=== PATIENT | female | born 1995 | race Caucasian/White ===

== ENCOUNTER 2017-04-04 14:51 | Emergency (ER) | payer OTHER ==
[~2017-04-04] VITALS: Ht 149.9 cm; Wt 59.0 kg
[~2017-04-04 14:51] MED LIST: LISD50CA3 PO
[2017-04-04] MEDS ORDERED: IV NORMAL SALINE 1,000ML 1,000 ML IV ONE (15:30)
[2017-04-04] MEDS ORDERED: ONDANSETRON PF 4 MG/2 ML VIAL. IV ONE (15:45)
[2017-04-04 16:00] LABS: BASO % 0 % (0-3); EOS # 0.2 x10^3/uL (0.0-0.7); EOS % 3 % (0-3); HEMATOCRIT 40.3 % (36.0-47.0); HEMOGLOBIN 13.8 g/dL (12.0-15.5); LYMPH % 29 % (24-48); MEAN CORPUSCULAR HEMOGLOBIN 29 pg (25-35); MEAN CORPUSCULAR HGB CONC 34 g/dL (31-37); MEAN CORPUSCULAR VOLUME 84 fL (79-100); MONO # 0.4 x10^3/uL (0.0-1.1); MONO % 5 % (0-9); NEUT # 4.2 x10^3uL (1.8-7.7); NEUT % 62 % (31-73); PLATELET COUNT 326 x10^3/uL (140-400); RED BLOOD COUNT 4.81 x10^6/uL (3.50-5.40); RED CELL DISTRIBUTION WIDTH 13.5 % (11.5-14.5); WHITE BLOOD COUNT 6.7 x10^3/uL (4.0-11.0)
[2017-04-04 16:07] LABS: BILIRUBIN,URINE NEG (NEG); CLARITY,URINE CLEAR; COLOR,URINE YELLOW; GLUCOSE,URINE NEG (NEG); NITRITE,URINE NEG (NEG); UROBILINOGEN,URINE 0.2 mg/dL (0.2 mg/dL)
[2017-04-04 16:08] LABS: BACTERIA,URINE FEW /HPF (0-FEW); SQUAMOUS EPITHELIAL CELL,UR MANY /LPF
--- NOTE | 2017-04-04 16:25 | ED.ADGEN ---
Past History Past Medical History: Asthma Past Surgical History: No Surgical History Alcohol Use: Occasionally Drug Use: None Adult General Chief Complaint Chief Complaint Right lower quadrant pain HPI HPI Patient is a 22-year-old female with history of dysfunctional uterine bleeding, ovarian cyst who presents with right pelvic pain, after intercourse with light vaginal bleeding described as similar to menstrual. Patient reports mild right lower quadrant pain which is persisted greater than 12 hours. Reports occasional nausea and vomiting. Denies flank pain, urinary frequency urgency. No history of kidney stones. No prior abdominal surgery. Also reports recent upper respiratory tract illness and occasional dry cough. No shortness of breath or wheezing. No fever chills or sweats. No other acute symptoms or complaints. No prior abdominal surgeries. Review of Systems Review of Systems Review symptoms as per history of present illness. All other review symptoms are negative. Current Medications Current Medications Current Medications Medications (Trade) Dose Ordered Sig/Angelita Start Time Stop Time Status Last Admin Dose Admin Iohexol (Omnipaque 300 Mg/ml) 75 ml 1X ONCE 04/04/17 18:00 04/04/17 18:01 DC 04/04/17 18:00 75 ML Ondansetron HCl (Zofran) 4 mg 1X ONCE 04/04/17 15:45 04/04/17 15:46 DC 04/04/17 15:45 4 MG Sodium Chloride 1,000 ml @ 1,000 mls/hr 1X ONCE 04/04/17 15:30 04/04/17 16:29 DC 04/04/17 15:30 1,000 MLS/HR Allergies Allergies Allergies Coded Allergies Type Severity Reaction Last Updated Verified No Known Drug Allergies 05/11/14 No Physical Exam Physical Exam Constitutional: Well developed, well nourished, no acute distress, non-toxic appearance. [] HENT: Normocephalic, atraumatic, bilateral external ears normal, oropharynx moist, no oral exudates, nose normal. [] Eyes: PERRLA, EOMI, conjunctiva normal, no discharge. [] Neck: Normal range of motion, no tenderness, supple, no stridor. [] Cardiovascular:Heart rate regular rhythm, no murmur [] Lungs & Thorax: Bilateral breath sounds clear to auscultation [] Abdomen: Bowel sounds normal, soft, right lower quadrant pain, no tenderness rigidity or guarding[] Skin: Warm, dry, no erythema, no rash. [] Back: No tenderness, no CVA tenderness. [] Extremities: No tenderness. [] Neurologic: Alert and oriented X 3, normal motor function, normal sensory function, no focal deficits noted. [] Psychologic: Affect normal, judgement normal, mood normal. [] Current Patient Data Vital Signs Vital Signs Date Time Temp Pulse Resp B/P (MAP) Pulse Ox O2 Delivery O2 Flow Rate FiO2 04/04/17 17:30 85 20 120/76 (91) 99 Room Air 04/04/17 14:51 98.3 Lab Results Laboratory Tests Test 04/04/17 15:20 04/04/17 15:32 04/04/17 15:35 Urine Collection Type Unknown Urine Color Yellow Urine Clarity Clear Urine pH 7.5 Urine Specific Hines 1.020 Urine Protein Neg (NEG-TRACE) Urine Glucose (UA) Neg mg/dL (NEG) Urine Ketones (Stick) Neg mg/dL (NEG) Urine Blood Neg (NEG) Urine Nitrite Neg (NEG) Urine Bilirubin Neg (NEG) Urine Urobilinogen Dipstick 0.2 mg/dL (0.2 mg/dL) Urine Leukocyte Esterase Neg (NEG) Urine RBC 3-5 /HPF (0-2) Urine WBC 5-10 /HPF (0-4) Urine Squamous Epithelial Cells Many /LPF Urine Bacteria Few /HPF (0-FEW) Urine Mucus Slight /LPF POC Urine HCG, Qualitative hcg negative (Negative) White Blood Count 6.7 x10^3/uL (4.0-11.0) Red Blood Count 4.81 x10^6/uL (3.50-5.40) Hemoglobin 13.8 g/dL (12.0-15.5) Hematocrit 40.3 % (36.0-47.0) Mean Corpuscular Volume 84 fL (79-100) Mean Corpuscular Hemoglobin 29 pg (25-35) Mean Corpuscular Hemoglobin Concent 34 g/dL (31-37) Red Cell Distribution Width 13.5 % (11.5-14.5) Platelet Count 326 x10^3/uL (140-400) Neutrophils (%) (Auto) 62 % (31-73) Lymphocytes (%) (Auto) 29 % (24-48) Monocytes (%) (Auto) 5 % (0-9) Eosinophils (%) (Auto) 3 % (0-3) Basophils (%) (Auto) 0 % (0-3) Neutrophils # (Auto) 4.2 x10^3uL (1.8-7.7) Lymphocytes # (Auto) 2.0 x10^3/uL (1.0-4.8) Monocytes # (Auto) 0.4 x10^3/uL (0.0-1.1) Eosinophils # (Auto) 0.2 x10^3/uL (0.0-0.7) Basophils # (Auto) 0.0 x10^3/uL (0.0-0.2) Sodium Level 143 mmol/L (136-145) Potassium Level 3.8 mmol/L (3.5-5.1) Chloride Level 105 mmol/L (98-107) Carbon Dioxide Level 31 mmol/L (21-32) Anion Gap 7 (6-14) Blood Urea Nitrogen 16 mg/dL (7-20) Creatinine 0.7 mg/dL (0.6-1.0) Estimated GFR (Cockcroft-Gault) 102.8 Glucose Level 110 mg/dL (70-99) H Calcium Level 9.2 mg/dL (8.5-10.1) EKG EKG [] Radiology/Procedures Radiology/Procedures [Pelvic ultrasound: Negative pelvic US per radiology report CT abd/pelvis: Pending] Course & Med Decision Making Course & Med Decision Making Pertinent Labs and Imaging studies reviewed. (See chart for details) [Right lower quadrant/pelvic pain. Ultrasound shows good blood flow to both ovaries. CT abdomen pelvis pending for evaluation of appendix. Anticipate discharge home pending normal findings. Care endorsed to oncoming ERP at 1800] Final Impression Final Impression [1. Right lower quadrant pain] Problems: Dragon Disclaimer Dragon Disclaimer This electronic medical record was generated, in whole or in part, using a voice recognition dictation system. SILVIA MCMAHON DO Apr 04, 2017 16:25
[2017-04-04 16:28] LABS: CALCIUM 9.2 mg/dL (8.5-10.1); CREATININE 0.7 mg/dL (0.6-1.0); GFR 102.8; POTASSIUM 3.8 mmol/L (3.5-5.1)
--- NOTE | 2017-04-04 17:27 | RAD ---
Pelvic ultrasound dated 04/04/2017. No comparison available. Clinical indication: Pelvic pain and vaginal bleeding. FINDINGS: Transabdominal and transvaginal pelvic ultrasound was performed. Uterus measures 7.5 x 4.5 x 3.5 cm. No focal uterine mass. Endometrial complex normal in thickness for age measuring 4 mm. Nabothian cyst at the endocervix. Right ovary measures 3.4 x 2.8 x 1.8 cm. Left ovary measures 3.3 x 2.0 x 2.4 cm. Small normal follicular cysts bilaterally. Normal color Doppler flow. No free fluid. IMPRESSION: Negative pelvic ultrasound. Electronically signed by: Blaine Marie MD (04/04/2017 5:24 PM) [facility]
[2017-04-04 17:30] VITALS: BP 120/76
[2017-04-04] MEDS ORDERED: IOHEXOL 300 MG/ML 75 ML VIAL. IV ONE (18:00)
--- NOTE | 2017-04-04 18:30 | RAD ---
CT ABD PELV W/ IV CONTRST ONLY dated 04/04/2017 5:41 PM Indication: Lower quadrant pain, right greater than left, episodic, 5 times a day Comparison: No comparison is available. Technique: Contiguous axial imaging the abdomen and pelvis performed after the intravenous administration of 75 cc Omnipaque 300 One or more of the following individualized dose reduction techniques were utilized for this examination: 1. Automated exposure control 2. Adjustment of the mA and/or kV according to patient size 3. Use of iterative reconstruction technique Findings: Limited images of lung bases are clear. Heart size within normal limits. No pleural or pericardial effusion. There is minimal patchy increased density in the right middle lobe. There is also small noncalcified nodule in the right lower lobe on image 6 that measures 3 mm. Small noncalcified pulmonary nodule in the left lower lobe on image 13 measures 4 mm. Liver, spleen, pancreas, adrenal glands, gallbladder and kidneys are unremarkable. No stone or hydronephrosis. Unopacified GI tract normal in caliber and contour. No focal bowel wall thickening. No inflammatory stranding in the mesentery. The appendix is normal in caliber. No ascites or lymphadenopathy. Images of pelvis a mild diffuse wall thickening of the urinary bladder. Uterus and adnexa are unremarkable. No free fluid or lymphadenopathy. Bone windows show no acute findings. IMPRESSION: 1. No acute abnormality of abdomen or pelvis. No evidence of appendicitis. 2. Diffuse wall thickening of the urinary bladder, nonspecific. Consider acute or chronic cystitis. 3. Small noncalcified pulmonary nodules at both lung bases, nonspecific. Electronically signed by: Blaine Marie MD (04/04/2017 6:27 PM) [facility]
[2017-04-04] MEDS ORDERED: HYDR-2758 PO (18:57)
[2017-04-04] MEDS ORDERED: GUAI1TBM10 PO (18:57)
[2017-04-04] MEDS ORDERED: ONDA8TAB12 PO (18:57)
[2017-04-04] MEDS ORDERED: ACET-704 PO (19:10)
== END 2017-04-04 18:45 | disposition home or self-care (01) ==
LOC: ER 14:51
DX: J06.9 Acute upper respiratory infection, unspecified (principal); R10.32 Left lower quadrant pain; N39.8 Other specified disorders of urinary system; J45.909 Unspecified asthma, uncomplicated
CPT/HCPCS: 36415; 74177; 76830; 76856; 80048; 81001; 81025; 85025; 87086; 96361; 96374; 99285; J2405; Q9967; J7030

== ENCOUNTER 2018-05-29 17:19 | Emergency (ER) | payer OTHER ==
[~2018-05-29] VITALS: Ht 149.9 cm; Wt 59.0 kg
[~2018-05-29 17:19] MED LIST changes: +ACET-704 PO; +GUAI1TBM10 PO; +HYDR-2758 PO; +ONDA8TAB12 PO
[2018-05-29 17:42] VITALS: BP 122/87
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
== END 2018-05-29 18:34 | disposition home or self-care (01) ==
LOC: ER 17:19
DX: S30.1XXA Contusion of abdominal wall, initial encounter (principal); J45.909 Unspecified asthma, uncomplicated; W51.XXXA Accidental striking against or bumped into by another person, initial encounter; Y93.89 Activity, other specified; Y92.89 Other specified places as the place of occurrence of the external cause; Y99.8 Other external cause status
CPT/HCPCS: 99281; 99282

== ENCOUNTER 2018-06-27 06:59 | Emergency (ER) | payer OTHER ==
[~2018-06-27] VITALS: Ht 149.9 cm; Wt 63.6 kg
[~2018-06-27 06:59] MED LIST changes: +HYDR-2155 PO; -HYDR-2758 PO
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
--- NOTE | 2018-06-27 07:22 | EKG ---
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
[2018-06-27 07:29] LABS: BASO # 0.1 x10^3/uL (0.0-0.2); BASO % 1 % (0-3); EOS # 0.1 x10^3/uL (0.0-0.7); EOS % 1 % (0-3); HEMATOCRIT 42.9 % (36.0-47.0); HEMOGLOBIN 14.5 g/dL (12.0-15.5); LYMPH # 2.7 x10^3/uL (1.0-4.8); LYMPH % 21 % (24-48); MEAN CORPUSCULAR HEMOGLOBIN 29 pg (25-35); MEAN CORPUSCULAR HGB CONC 34 g/dL (31-37); MEAN CORPUSCULAR VOLUME 86 fL (79-100); MONO # 0.9 x10^3/uL (0.0-1.1); MONO % 7 % (0-9); NEUT # 9.4 x10^3uL (1.8-7.7); NEUT % 71 % (31-73); PLATELET COUNT 335 x10^3/uL (140-400); RED BLOOD COUNT 5.01 x10^6/uL (3.50-5.40); RED CELL DISTRIBUTION WIDTH 13.8 % (11.5-14.5); WHITE BLOOD COUNT 13.2 x10^3/uL (4.0-11.0)
[2018-06-27] MEDS ORDERED: KETOROLAC 15 MG/ML VIAL. ONE (07:40)
[2018-06-27 07:42] LABS: PREG TEST PT QUAL NEGATIVE (NEG)
[2018-06-27] MEDS ORDERED: KETOROLAC 15 MG/ML VIAL. IV ONE (07:45)
--- NOTE | 2018-06-27 07:45 | RAD ---
AP chest x-ray HISTORY: Chest pain, asthma. FINDINGS: Heart size normal. Mediastinal silhouette is normal. No pneumothorax, pulmonary opacities or pleural effusions. Bones are unremarkable. IMPRESSION: No acute process. Electronically signed by: Daren Bowman MD (06/27/2018 7:42 AM) [facility]
[2018-06-27 07:47] LABS: ALBUMIN 4.4 g/dL (3.4-5.0); ALBUMIN/GLOBULIN RATIO 1.2 (1.0-1.7); CALCIUM 8.9 mg/dL (8.5-10.1); CREATININE 0.6 mg/dL (0.6-1.0); GFR 121.8; MAGNESIUM 2.2 mg/dL (1.8-2.4); POTASSIUM 3.1 mmol/L (3.5-5.1); TOTAL BILIRUBIN 1.1 mg/dL (0.2-1.0); TOTAL PROTEIN 8.2 g/dL (6.4-8.2)
[2018-06-27 08:06] LABS: AMPHETAMINE/METHAMPHETAMINE POS (NEG); BARBITURATES NEG (NEG); BENZODIAZEPINES NEG (NEG); CANNABINOIDS POS (NEG); COCAINE NEG (NEG); METHADONE NEG (NEG); OPIATES NEG (NEG); PHENCYCLIDINE NEG (NEG)
[2018-06-27 10:37] VITALS: BP 95/51
== END 2018-06-27 10:57 | disposition home or self-care (01) ==
LOC: ER 06:59
DX: R07.9 Chest pain, unspecified (principal); R00.0 Tachycardia, unspecified; F41.9 Anxiety disorder, unspecified; J45.909 Unspecified asthma, uncomplicated
CPT/HCPCS: 36415; 71045; 80053; 80307; 83690; 83735; 83880; 84443; 84484; 84703; 85025; 85379; 85610; 93005; 96374; 99284; J1885

== ENCOUNTER → 2020-02-03 | Outpatient (CLI) | payer OTHER | END | disposition home or self-care (01) | LOC: LAB 07:15 | PROVIDERS: ATTEND Internal Medicine Cardiovascular Disease | DX: Z20.828 Contact with and (suspected) exposure to other viral communicable diseases (principal) | CPT/HCPCS: C9803; U0003; 36415 ==

== ENCOUNTER → 2020-06-04 | Outpatient (CLI) | payer OTHER | LOC: LAB 09:33 | PROVIDERS: ATTEND Internal Medicine Cardiovascular Disease | DX: Z20.828 Contact with and (suspected) exposure to other viral communicable diseases (principal) | CPT/HCPCS: U0003 ==